=== PATIENT | female | born 1935 | race African-American/Black ===

== ENCOUNTER 2017-02-24 18:16 | Inpatient (IN) | payer MEDICARE, MEDICAID ==
[~2017-02-24] VITALS: Ht 171.4 cm; Wt 68.5 kg
[~2017-02-24 18:16] MED LIST: FA/M1TAB2 PO; HYDR-523 PO; LEVO25TA2 PO; OMEP40CA PO
[2017-02-24] MEDS ORDERED: ASPI-1159 PO (18:27)
[2017-02-24] MEDS ORDERED: NITROGLYCERIN 0.4MG TABLET SL SL PRN (18:45)
[2017-02-24] MEDS ORDERED: ASPIRIN 81MG TABLET PO ONE (18:45)
[2017-02-24 19:02] LABS: PROTHROMBIN TIME 10.3 sec (9.4-11.6)
[2017-02-24 19:13] LABS: CARBON DIOXIDE 28 mEq/L (21-32); CHLORIDE 105 mEq/L (98-107); TROPONIN I 0.03 ng/mL (0.00-0.04)
[2017-02-24 19:14] LABS: BASOPHILS % 0.7 % (0.0-2.0); EOSINOPHILS % 0.8 % (0.0-5.0); HEMATOCRIT. 35.8 % (36.0-48.0); LYMPHOCYTES % 55.1 % (20.0-50.0); MEAN CORPUSCULAR HEMOGLOBIN 27.5 pg (28.0-32.0); MEAN CORPUSCULAR VOLUME 81.7 fL (81.0-99.0); MEAN PLATELET VOLUME 10.2 fl (7.4-10.4); MONOCYTES % 7.1 % (2.0-8.0); NEUTROPHILS % 36.3 % (40.0-76.0); PLATELET 139 x1000/uL (130-400); RED BLOOD CELL COUNT 4.38 mill/uL (4.2-5.4); RED CELL DISTRIBUTION WIDTH 14.9 % (11.6-14.6)
[2017-02-24] MEDS ORDERED: ACETAMINOPHEN WITH CODEINE 300/30MG TABLET PO ONE (22:45)
[2017-02-24] MEDS ORDERED: ACETAMINOPHEN 325MG TABLET PO ONE (23:30)
[2017-02-24 23:50] VITALS: BP 106/60
[2017-02-25] MEDS ORDERED: MSM PO (01:46)
[2017-02-25] MEDS ORDERED: BIOTIN PO (01:51)
[2017-02-25] MEDS ORDERED: IPRATROPIUM/ALBUTEROL 0.5-3(2.5)MG/3ML NEB HHN PRN (02:00)
[2017-02-25] MEDS ORDERED: PANTOPRAZOLE SODIUM 40 MG/VIAL IV SCH (02:00)
[2017-02-25] MEDS ORDERED: TRAMADOL 50MG TABLET PO PRN (02:00)
[2017-02-25] MEDS ORDERED: DEXTROSE 50% WATER 50ML SYRINGE IV PRN (02:00)
[2017-02-25] MEDS: FAMOTIDINE 20MG/2ML VIAL IV SCH ×2 (02:32→21:05)
[2017-02-25] MEDS: TEMAZEPAM 15MG CAPSULE PO PRN ×2 (02:32→21:05)
[2017-02-25 02:47] LABS: BASOPHILS % 0.8 % (0.0-2.0); EOSINOPHILS % 0.9 % (0.0-5.0); HEMATOCRIT. 34.8 % (36.0-48.0); HEMOGLOBIN. 11.4 g/dL (12.0-16.0); LYMPHOCYTES % 58.4 % (20.0-50.0); MEAN CORPUSCULAR HEMOGLOBIN 26.8 pg (28.0-32.0); MEAN CORPUSCULAR VOLUME 81.9 fL (81.0-99.0); MEAN PLATELET VOLUME 10.1 fl (7.4-10.4); MONOCYTES % 7.7 % (2.0-8.0); NEUTROPHILS % 32.2 % (40.0-76.0); PLATELET 128 x1000/uL (130-400); RED BLOOD CELL COUNT 4.24 mill/uL (4.2-5.4)
[2017-02-25 03:10] LABS: T4 FREE 1.1 ng/dL (0.76-1.46); TROPONIN I 0.03 ng/mL (0.00-0.04)
[2017-02-25 04:00] VITALS: BP 103/53
[2017-02-25] MEDS: LEVOTHYROXINE SODIUM 25MCG TABLET PO SCH (06:53)
[2017-02-25] MEDS: BLOOD SUGAR DIAGNOSTIC STRIP TEST SCH ×4 (06:56→21:00)
[2017-02-25] MEDS: INSULIN LISPRO 100 UNITS/ML SUBCUT SCH ×4 (06:57→21:00)
[2017-02-25 08:15] VITALS: BP 115/64
[2017-02-25] MEDS: ENOXAPARIN 40MG/0.4ML SYR SUBCUT SCH (08:48)
[2017-02-25] MEDS: ASPIRIN 81MG EC TABLET PO SCH (08:50)
[2017-02-25] MEDS ORDERED: BIOTIN 1000 MG PO SCH (09:00)
[2017-02-25 12:10] VITALS: BP 117/66
[2017-02-25 16:50] VITALS: BP 131/72
[2017-02-25 19:51] VITALS: BP 117/72
[2017-02-25] MEDS ORDERED: ATORVASTATIN CALCIUM 20MG TABLET PO SCH (21:00)
[2017-02-25] MEDS: DOCUSATE SODIUM 100MG CAPSULE PO SCH (21:05)
[2017-02-26 00:15] VITALS: BP 129/72
[2017-02-26 04:00] VITALS: BP 109/61
[2017-02-26] MEDS: BLOOD SUGAR DIAGNOSTIC STRIP TEST SCH (06:13)
[2017-02-26] MEDS: LEVOTHYROXINE SODIUM 25MCG TABLET PO SCH (06:13)
[2017-02-26] MEDS: INSULIN LISPRO 100 UNITS/ML SUBCUT SCH (07:27)
[2017-02-26 08:10] VITALS: BP_SYST 128
[2017-02-26] MEDS: FAMOTIDINE 20MG/2ML VIAL IV SCH (09:26)
[2017-02-26] MEDS: ENOXAPARIN 40MG/0.4ML SYR SUBCUT SCH (09:26)
[2017-02-26] MEDS: ASPIRIN 81MG EC TABLET PO SCH (09:26)
[2017-02-26] MEDS: DOCUSATE SODIUM 100MG CAPSULE PO SCH (09:26)
[2017-02-26 10:12] LABS: VITAMIN D 25-OH 29.3 ng/mL (30.0-100.0)
[2017-02-26] MEDS ORDERED: LEVO125T8 PO (10:32)
[2017-02-26 11:10] VITALS: BP 112/68
[2017-02-27 04:17] LABS: ANTI-NUCLEAR ANTIBODIES DIRECT Negative (Negative)
[2017-02-27] MEDS ORDERED: LEVOTHYROXINE SODIUM 125MCG TABLET PO SCH (07:20)
== END 2017-02-26 13:00 | disposition home or self-care (01) | DRG 313 ==
LOC: ER 18:16 → 6WST 20:37 → ENRESERV 22:04
PROVIDERS: ADMIT Specialist; ATTEND Specialist
DX: R07.89 Other chest pain (principal); D69.6 Thrombocytopenia, unspecified; E11.9 Type 2 diabetes mellitus without complications; I10 Essential (primary) hypertension; E03.9 Hypothyroidism, unspecified; K21.9 Gastro-esophageal reflux disease without esophagitis; E78.00 Pure hypercholesterolemia, unspecified; E78.1 Pure hyperglyceridemia; E66.9 Obesity, unspecified; E78.5 Hyperlipidemia, unspecified; Z90.49 Acquired absence of other specified parts of digestive tract; Z90.710 Acquired absence of both cervix and uterus; Z79.899 Other long term (current) drug therapy; Z79.82 Long term (current) use of aspirin; Z88.8 Allergy status to other drugs, medicaments and biological substances; Z88.0 Allergy status to penicillin; Z88.6 Allergy status to analgesic agent; Z88.1 Allergy status to other antibiotic agents; Z68.23 Body mass index [BMI] 23.0-23.9, adult
CPT/HCPCS: 36415; 71010; 80051; 80053; 80061; 82306; 82962; 83036; 83735; 83880; 84439; 84443; 84484; 85025; 85610; 85651; 86038; 93005; 93306; 93970; 97161; 99285; J1650; J3490; J7620

== ENCOUNTER 2017-11-22 13:05 | Emergency (ER) | payer MEDICARE, MEDICAID ==
[~2017-11-22] VITALS: Ht 167.6 cm; Wt 69.0 kg
[~2017-11-22 13:05] MED LIST changes: +ASPI-1159 PO; +BIOTIN PO; +MSM PO
[2017-11-22 17:22] VITALS: BP 136/79
== END 2017-11-22 17:31 | disposition home or self-care (01) ==
LOC: ER 13:05
DX: K22.4 Dyskinesia of esophagus (principal); R06.02 Shortness of breath; E11.9 Type 2 diabetes mellitus without complications; K21.9 Gastro-esophageal reflux disease without esophagitis; E78.00 Pure hypercholesterolemia, unspecified; E03.9 Hypothyroidism, unspecified; Z88.0 Allergy status to penicillin; Z88.1 Allergy status to other antibiotic agents; Z88.5 Allergy status to narcotic agent; Z88.6 Allergy status to analgesic agent; Z88.8 Allergy status to other drugs, medicaments and biological substances; Z79.82 Long term (current) use of aspirin
CPT/HCPCS: 70360; 74022; 99284

== ENCOUNTER 2020-11-14 11:49 | Emergency (ER) | payer OTHER, MEDICAID ==
[~2020-11-14] VITALS: Ht 170.2 cm; Wt 67.0 kg
[~2020-11-14 11:49] MED LIST changes: -ASPI-1159 PO; +ASPI-1497 PO; -BIOTIN PO; +EZET10TA26 PO; -HYDR-523 PO; -MSM PO; +OLOP5DRO14 EACHEYE
[2020-11-14 14:05] LABS: CLARITY URINE CLEAR (CLEAR); COLOR URINE YELLOW (YELLOW); KETONES URINE NEGATIVE (NEGATIVE); LEUKOCYTE ESTERASE URINE 1+ (NEGATIVE); NITRITE URINE NEGATIVE (NEGATIVE); OCCULT BLOOD URINE NEGATIVE (NEGATIVE); PROTEIN URINE NEGATIVE (NEGATIVE); SPECIFIC GRAVITY URINE 1.006 (1.005-1.030); UROBILINOGEN URINE 0.2 E.U./dL (0.2-1.0)
[2020-11-14 14:10] LABS: BASOPHILS % 0.8 % (0.0-2.0); EOSINOPHILS % 0.3 % (0.0-5.0); HEMATOCRIT. 35.7 % (36.0-48.0); LYMPHOCYTES % 57.6 % (20.0-50.0); MEAN CORPUSCULAR HEMOGLOBIN 27.6 pg (28.0-32.0); MEAN CORPUSCULAR VOLUME 82.4 fL (81.0-99.0); MEAN PLATELET VOLUME 10.2 fl (7.4-10.4); MONOCYTES % 7.1 % (2.0-8.0); NEUTROPHILS % 34.2 % (40.0-76.0); PLATELET 174 x1000/uL (130-400); RED BLOOD CELL COUNT 4.34 mill/uL (4.2-5.4); RED CELL DISTRIBUTION WIDTH 14.8 % (11.6-14.6)
[2020-11-14 14:13] LABS: CHLORIDE 108 mEq/L (98-107)
[2020-11-14 16:43] VITALS: BP 110/63
== END 2020-11-14 16:59 | disposition home or self-care (01) ==
LOC: ER 11:49
DX: R10.13 Epigastric pain (principal); E11.9 Type 2 diabetes mellitus without complications; I10 Essential (primary) hypertension; K21.9 Gastro-esophageal reflux disease without esophagitis; E78.00 Pure hypercholesterolemia, unspecified; E03.9 Hypothyroidism, unspecified; Z90.49 Acquired absence of other specified parts of digestive tract; Z90.710 Acquired absence of both cervix and uterus; Z79.82 Long term (current) use of aspirin; Z88.3 Allergy status to other anti-infective agents; Z88.0 Allergy status to penicillin
CPT/HCPCS: 36415; 71045; 74176; 76705; 80053; 81003; 83880; 84484; 85025; 93005; 99285

== ENCOUNTER 2021-01-06 20:45 | Emergency (ER) | payer OTHER, MEDICAID ==
[~2021-01-06] VITALS: Ht 170.2 cm; Wt 67.0 kg
[2021-01-06 21:23] VITALS: BP 129/74
== END 2021-01-06 23:00 | disposition left against medical advice (07) ==
LOC: ER 20:45
DX: I49.9 Cardiac arrhythmia, unspecified (principal); Z53.21 Procedure and treatment not carried out due to patient leaving prior to being seen by health care provider
CPT/HCPCS: 93005